=== PATIENT | female | born 1985 | race Caucasian/White ===

== ENCOUNTER 2018-01-18 13:47 | Day surgery (SDC) | payer OTHER ==
[~2018-01-18] VITALS: Ht 177.8 cm; Wt 70.5 kg
[~2018-01-18 13:47] MED LIST: BIOT25005 PO; BUPIVACAINE/PF 0.25% ONE; CHOL100012 PO; DESO1TAB34 PO; ENZY1CAP PO; HYDR200T72 PO; LACT1CAP35 PO
[2018-01-18] MEDS ORDERED: LACTATED RINGERS 1,000 ML IV SCH (14:00)
[2018-01-18 14:23] VITALS: BP 126/79
[2018-01-18] MEDS ORDERED: EPHEDRINE 50 MG/ML, 1ML IVPush PRN (14:30)
[2018-01-18] MEDS ORDERED: hydrALAzine 20 MG/ML, 1ML IV PRN (14:30)
[2018-01-18] MEDS ORDERED: METOPROLOL 1 MG/ML, 5ML IV PRN (14:30)
[2018-01-18] MEDS ORDERED: ACETAMINOPHEN 325 MG TABLET PO PRN (14:30)
[2018-01-18] MEDS ORDERED: ALBUTEROL SULFATE 2.5 MG/3 ML NPPB PRN (14:30)
[2018-01-18] MEDS ORDERED: HYDROcodone/APAP 7.5-325MG/15ML UDC PO PRN (14:30)
[2018-01-18] MEDS ORDERED: FENTANYL PF 100 MCG/2ML IV PRN (14:30)
[2018-01-18] MEDS ORDERED: MEPERIDINE/PF 25MG/0.5ML IVPush PRN (14:30)
[2018-01-18] MEDS ORDERED: PROMETHAZINE 25 MG/ML, 1ML IV PRN (14:30)
[2018-01-18] MEDS ORDERED: ONDANSETRON 2MG/ML, 2ML IVPush PRN (14:30)
[2018-01-18] MEDS ORDERED: LABETALOL 5MG/ML, 20ML IV PRN (14:30)
[2018-01-18 14:52] LABS: HCG UR SG 1.024 (1.003-1.030)
[2018-01-18] MEDS ORDERED: FENTANYL PF 100 MCG/2ML ONE ×2 (15:09→16:15)
[2018-01-18] MEDS ORDERED: MIDAZOLAM 1 MG/ML, 2ML ONE (15:09)
[2018-01-18] MEDS ORDERED: BUPIVACAINE/PF-EPI 0.25% 1:200K IM ONE (15:58)
[2018-01-18] MEDS ORDERED: CEFAZOLIN 1,000 MG ONE (16:12)
[2018-01-18] MEDS ORDERED: PROPOFOL 10 MG/ML, 20ML ONE (16:12)
[2018-01-18] MEDS ORDERED: DEXAMETHASONE 4 MG/ML, 1ML ONE ×2 (16:12)
[2018-01-18] MEDS ORDERED: ONDANSETRON 2MG/ML, 2ML ONE (16:12)
[2018-01-18] MEDS ORDERED: KETOROLAC 30 MG/1 ML ONE (16:13)
== END 2018-01-18 18:20 ==
LOC: OR 13:47
PROVIDERS: ATTEND Obstetrics & Gynecology Reproductive Endocrinology
DX: N84.0 Polyp of corpus uteri (principal); Z88.1 Allergy status to other antibiotic agents; Z88.5 Allergy status to narcotic agent; Z88.8 Allergy status to other drugs, medicaments and biological substances
CPT/HCPCS: 58558; 81025; 88305; J0690; J1100; J1885; J2250; J2405; J2704; J3010; J3490; J7120